=== PATIENT | male | born 1990 | race Two or more races ===

== ENCOUNTER 2024-09-23 23:19 | Emergency (ER) | payer SELFPAY ==
[2024-09-23 23:28] VITALS: BP 125/78; PULSE 124; RESP 18; TEMP 36.8; O2SAT 97
[2024-09-24] MEDS: ACETAMINOPHEN 500 MG TABLET 1000 MG PO (00:13)
[2024-09-24] MEDS: IBUPROFEN TAB 600 MG TABLET PO (00:14)
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
== END 2024-09-24 00:20 ==
LOC: SERX 09-24 00:25
PROVIDERS: Emergency Provider Emergency Medicine
DX: Z02.89 Encounter for other administrative examinations (principal); S20.419A Abrasion of unspecified back wall of thorax, initial encounter; S40.212A Abrasion of left shoulder, initial encounter; S40.211A Abrasion of right shoulder, initial encounter; Y35.813A Legal intervention involving manhandling, suspect injured, initial encounter
CPT/HCPCS: 99282; A9270